=== PATIENT | female | born 1980 | race Caucasian/White ===

== ENCOUNTER 2021-08-26 03:21 | Emergency (ER) | payer OTHER, SELFPAY ==
[2021-08-26 03:28] VITALS: BP 135/88; PULSE 113; RESP 16; TEMP 36.5; O2SAT 98; BMI 34.3
[2021-08-26] MEDS: sodium chloride 0.9% 1,000 ML 999 ML IV ×2 (03:41→03:46)
[2021-08-26] MEDS: ondansetron 2 mg/ML SDV 2 mL 8 MG IVP (03:45)
--- NOTE | 2021-08-26 03:51 | W.ED.NAVMDI ---
HPI - Nausea/Vomiting/Diarrhea General: Chief complaint: Nausea/Vomiting/Diarrhea Stated complaint: Diarrhea\Fever\Vomiting Time Seen by Provider: 08/26/21 03:31 Source: patient History of Present Illness: Healthy 40-year-old female. She presents with vomiting diarrhea and fever for the past 4 days. She notes that she ate at a restaurant on , and noticed symptoms thereafter. They have not let up. No blood in the stool. No blood in the vomitus. Intermittent cramping belly pain without any constant pain. No difficulty with urination. MD elicited complaint: nausea, vomiting and diarrhea Onset (ago): day(s) (4) Description of vomiting: food contents and watery Description of diarrhea: watery Associated nausea: Yes Associated abdominal pain: Yes (Mild diffuse intermittent) Location of pain: Diffuse Radiation: diffuse Pain consistency: intermittent Severity: mild Quality: cramping Exacerbating factors: none Relieving factors: none Context: possible food poisoning Associated symtoms: Reports decreased urine output, fatigue, fevers/chills and nausea; Denies altered mental status, chest pain, cough, diaphoresis, dysuria, headache(s) or short of breath Treatment prior to arrival: analgesics Review of Systems Const: Reports: fever(s) and fatigue; Denies: diaphoresis ENMT: Denies: throat pain Card: Denies: chest pain Resp: Denies: dyspnea, productive cough or non-productive cough GI: Reports: nausea, vomiting and diarrhea; Denies: hematemesis or hematochezia : Denies: dysuria Neuro: Denies: headache(s) Physical Exam Const: EXAM LIMITATIONS: no altered mental status GENERAL APPEARANCE: cooperative; not frail appearing HENMT: COMMON NORMALS: normocephalic, atraumatic and Normal external nose present HEAD & SCALP: normocephalic and atraumatic FACE & SINUS: normal facial exam NOSE: Normal external nose present Eye: COMMON NORMALS: Equal, round and reactive pupils present and EOMs intact bilaterally PUPIL: Yes Equal, round and reactive pupils present Neck/C-Spine: GENERAL: Yes normal visual inspection and Yes trachea midline Chest: CHEST: Yes Symmetrical chest wall rise Resp: COMMON NORMALS: normal respiratory effort, No use of accessory muscles and clear to auscultation bilaterally AUSCULTATION: clear to auscultation bilaterally Cardio: COMMON NORMALS: regular rate and regular rhythm RATE: regular rate RHYTHM: regular rhythm GI: COMMON NORMALS: Normal to inspection, nondistended, normoactive bowel sounds present, Soft to palpation and non-tender PALPATION: Yes Soft to palpation Neuro: ELIA COMA SCALE: document GCS findings [place] coma scale eye opening: Spontaneous [place] coma scale verbal response: Orientated Elia coma scale motor response: Obey commands [place] coma scale total score: 15 Course Vital Signs: Vital signs: Vital Signs Temperature 97.7 F 08/26/21 03:28 Pulse Rate 113 H 08/26/21 03:28 Respiratory Rate 16 08/26/21 03:28 Blood Pressure 135/88 08/26/21 03:28 Pulse Oximetry 98 08/26/21 03:28 MDM - Nausea/Vomiting/Diarrhea Medical Decision Making White blood cell count is only 7.8, but CRP is 185. Hemoglobin 13.8. Bicarbonate is 21. She has received 2 L of IV fluid here. CT shows diffuse colitis. No perforation or bowel obstruction. There is some thickening of the mucosa in the distal stomach as well. She does not have a history of ulcerative colitis symptoms necessarily. She will be given ciprofloxacin, Flagyl, a tapering dose of steroid, and symptom control medication. Warning signs for return given. She has had no recent antibiotic usage. Lab Data : 08/26/21 03:35 08/26/21 03:35 Radiology Impressions Abdomen/Pelvis CT 08/26/21 04:11 IMPRESSION: 1. Findings compatible with diffuse colitis, see above details. 2. No free air or bowel distention. No evidence for bowel obstruction. 3. Borderline size of the appendix, please see detailed discussion above. 4. Possible thickened mucosa/wall in the distal stomach, see above discussion. 5. Prior cholecystectomy. Borderline/mild biliary tree dilation, see above discussion. 6. Small amount of cul-de-sac fluid. No definite abnormal ovarian/adnexal cyst or mass by CT. 7. Other findings discussed above. Laboratory Results WBC 7.8 10^3/uL (4.0-10.0) 08/26/21 03:35 RBC 4.67 10^6/uL (4.1-5.3) 08/26/21 03:35 Hgb 13.8 g/dL (11.5-15.3) 08/26/21 03:35 Hct 41.1 % (37.0-47.0) 08/26/21 03:35 MCV 88.0 fl (81-99) 08/26/21 03:35 MCH 29.6 pg (28.0-34.0) 08/26/21 03:35 MCHC 33.6 g/dL (30.0-36.0) 08/26/21 03:35 RDW 13.0 % (12.1-15.1) 08/26/21 03:35 Plt Count 358 10^3/cmm (130-400) 08/26/21 03:35 MPV 10.1 fL (7.4-10.4) 08/26/21 03:35 Neut % (Auto) 55.8 % 08/26/21 03:35 Lymph % (Auto) 30.1 % 08/26/21 03:35 [place] % (Auto) 12.9 % 08/26/21 03:35 Eos % (Auto) 0.4 % 08/26/21 03:35 Baso % (Auto) 0.4 % 08/26/21 03:35 Neut # (Auto) 4.38 10^3/uL (1.8-7.7) 08/26/21 03:35 Lymph # (Auto) 2.4 10^3/uL (0.8-4.8) 08/26/21 03:35 [place] # (Auto) 1.0 10^3/uL (0.2-0.9) H 08/26/21 03:35 Eos # (Auto) 0.0 10^3/uL (0.0-0.8) 08/26/21 03:35 Baso # (Auto) 0.0 10^3/uL (0.0-0.1) 08/26/21 03:35 Nucleated RBC % (auto) 0 % 08/26/21 03:35 Nucleated RBCs # 0.0 /100WBC 08/26/21 03:35 Sodium 134 mmol/L (136-145) L 08/26/21 03:35 Potassium 3.9 mmol/L (3.5-5.1) 08/26/21 03:35 Chloride 99 mmol/L (98-107) 08/26/21 03:35 Carbon Dioxide 21 mmol/L (22-29) L 08/26/21 03:35 Anion Gap 17.9 (5-19) 08/26/21 03:35 BUN 9 mg/dL (6-20) 08/26/21 03:35 Creatinine 0.6 mg/dL (0.5-0.9) 08/26/21 03:35 GFR Calculation 111.9 mL/min (90-130) 08/26/21 03:35 Glucose 145 mg/dL (65-115) H 08/26/21 03:35 Calculated Osmolality 279 mOsm/kg (285-295) L 08/26/21 03:35 Calcium 8.4 mg/dL (8.5-10.5) L 08/26/21 03:35 Total Bilirubin 0.3 mg/dL (0.15-1.2) 08/26/21 03:35 AST 35 U/L (0-32) H 08/26/21 03:35 ALT 35 U/L (0-33) H 08/26/21 03:35 Alkaline Phosphatase 71 IU/L (35-105) 08/26/21 03:35 C-Reactive Protein 185.3 mg/L (0.0-4.9) H 08/26/21 03:35 Total Protein 7.8 g/dL (6.6-8.7) 08/26/21 03:35 Albumin 3.9 g/dL (3.5-5.2) 08/26/21 03:35 Globulin 3.9 g/dL (1.3-4.6) 08/26/21 03:35 Lipase 21 U/L (13-60) 08/26/21 03:35 HCG, Qual Negative (Negative) 08/26/21 03:35 Urine Color Yellow (Yellow) 08/26/21 05:35 Urine Appearance Clear (CLEAR) 08/26/21 05:35 Urine pH 6.5 (5-7) 08/26/21 05:35 Ur Specific [place] 1.005 (1.005-1.030) 08/26/21 05:35 Urine Protein Trace (Negative) 08/26/21 05:35 Urine Glucose (UA) Norm (Normal) 08/26/21 05:35 Urine Ketones 1+ (Negative) H 08/26/21 05:35 Urine Blood Neg (Negative) 08/26/21 05:35 Urine Nitrate Negative (Negative) 08/26/21 05:35 Urine Bilirubin Neg (Negative) 08/26/21 05:35 Urine Urobilinogen Norm mg/dL (Negative) 08/26/21 05:35 Ur Leukocyte Esterase Negative (Negative) 08/26/21 05:35 Urine RBC 0-4 /hpf (0-2) H 08/26/21 05:35 Urine WBC 0-4 /hpf (0-5) H 08/26/21 05:35 Ur Squamous Epith Cells 5-10 /hpf (0-5) H 08/26/21 05:35 Amorphous Sediment Not Reportable 08/26/21 05:35 Urine Bacteria Trace /hpf (NONE) 08/26/21 05:35 Urine Mucus Trace /hpf 08/26/21 05:35 Coronavirus 229E (PCR) Not detected (NOT DETECT) 08/26/21 04:16 SARS-CoV-2 (PCR) Not detected (NOT DETECT) 08/26/21 04:16 Discharge Plan Discharge Patient Disposition: Home Clinical Impression: Colitis Condition: Stable Prescriptions: New metronidazole 500 mg tablet 500 mg PO Q8H 10 Days Qty: 30 0RF Cipro 500 mg tablet 500 mg PO BID Qty: 14 0RF Medrol (Fredy) 4 mg tablets,dose pack See Rx Instructions PO .COMPLEX Qty: 21 0RF Rx Instructions: orally per package directions Zofran 4 mg tablet 4 mg PO Q6H PRN (Reason: nausea and vomiting) Qty: 10 0RF hydrocodone-acetaminophen 5-325 mg tablet 1 tab PO Q8H PRN (Reason: pain) Qty: 7 0RF Discharge Orders: Discharge ED (Routine); Ordered 08/26/21 Ordered By: Sergei Marie Referrals: Sonal Roamno APN [Primary Care Provider] - 1-3 days Discharge Diet: Advance as tolerated and Clear Liquid Discharge Activity: Increase activity as tolerated Patient Instructions: Colitis (ED), Opioid Safety Activity Restrictions/Additional Instructions: Take nausea medication scheduled for the next 48 hours, then as needed. Antibiotic and steroid as directed. Use pain medication sparingly. Return for fever greater than 100 despite 2-3 doses of antibiotics, vomiting liquids or medications, worsening pain despite treatment, blood in the stool, any other concerning symptoms. Coding Level of Care Code ED Oncology Specialist for Chg Fwd Exam Comprehensive
[2021-08-26 03:54] LABS: Basophils % 0.4 %; Eosinophils % 0.4 %; Hematocrit 41.1 % (37.0-47.0); Hemoglobin 13.8 g/dL (11.5-15.3); Lymphocytes # 2.4 10^3/uL (0.8-4.8); Lymphocytes % 30.1 %; Mean Corpuscular HGB Conc 33.6 g/dL (30.0-36.0); Mean Corpuscular Hemoglobin 29.6 pg (28.0-34.0); Mean Platelet Volume 10.1 fL (7.4-10.4); Monocytes % 12.9 %; Neutrophils # 4.38 10^3/uL (1.8-7.7); Neutrophils % 55.8 %; Nucleated Red Blood Cells % 0 %; Platelet Count 358 10^3/cmm (130-400); Red Blood Count 4.67 10^6/uL (4.1-5.3); White Blood Count 7.8 10^3/uL (4.0-10.0)
[2021-08-26 04:02] LABS: HCG, Serum Qual Negative (Negative)
[2021-08-26 04:04] LABS: Alanine Aminotransferase 35 U/L (0-33); Albumin Level 3.9 g/dL (3.5-5.2); Alkaline Phosphatase 71 IU/L (35-105); Blood Urea Nitrogen 9 mg/dL (6-20); C Reactive Protein 185.3 mg/L (0.0-4.9); Calcium 8.4 mg/dL (8.5-10.5); Carbon Dioxide 21 mmol/L (22-29); Chloride 99 mmol/L (98-107); Creatinine Clr Calc Pharmacy 138.6943; Globulin 3.9 g/dL (1.3-4.6); Glomerular Filtration Rate 111.9 mL/min (90-130); Glucose 145 mg/dL (65-115); Lipase 21 U/L (13-60); Osmolality Calculated 279 mOsm/kg (285-295); Sodium 134 mmol/L (136-145); Total Bilirubin 0.3 mg/dL (0.15-1.2); Total Protein 7.8 g/dL (6.6-8.7)
[2021-08-26 04:05] LABS: Anion Gap 17.9 (5-19); Aspartate Amino Transferase 35 U/L (0-32); Potassium 3.9 mmol/L (3.5-5.1)
--- NOTE | 2021-08-26 04:11 | CTR_ITS ---
PROCEDURE INFORMATION: Exam: CT Abdomen And Pelvis With Contrast Exam date and time: 08/26/2021 4:11 AM Age: 40 years old Clinical indication: Fever and nausea and vomiting and other: Diarrhea; Prior surgery; Surgery date: 6+ months; Surgery type: Gb; Additional info: Abd pain vomiting diarrhea TECHNIQUE: Imaging protocol: Computed tomography of the abdomen and pelvis with contrast. Radiation optimization: All CT scans at this facility use at least one of these dose optimization techniques: automated exposure control; mA and/or kV adjustment per patient size (includes targeted exams where dose is matched to clinical indication); or iterative reconstruction. Contrast material: OMNI 300; Contrast volume: 95 ml; Contrast route: INTRAVENOUS (IV); COMPARISON: No relevant prior studies available. RADIATION DOSE METRICS: Total DLP (mGy-cm): 1772.43 FINDINGS: Lungs: The lung bases are clear. Liver: Unremarkable. Gallbladder and bile ducts: Prior cholecystectomy. Borderline/mild biliary tree dilation, with common duct measuring up to about 11 mm. No intrahepatic biliary dilation. No visible common duct stone by CT. Significance uncertain, but probably unlikely. Correlation with laboratory/bilirubin levels may be helpful to determine if there is any significant biliary obstruction. Pancreas: Unremarkable. Spleen: Unremarkable. Adrenal glands: Unremarkable. Kidneys and ureters: Small left upper pole intrarenal calculus. No hydronephrosis of either kidney. No visible ureteral calculus. Stomach and bowel: No significant bowel distention. Mild to moderate diffuse mucosal/wall thickening involving essentially the entire colon, probably slightly more prominent involving the right colon. Some regions demonstrate mild pericolonic edema/inflammation. Suspect mild associated involvement of the terminal ileum. While nonspecific, this appearance is likely secondary to some form of colitis, including infectious, inflammatory, and pseudomembranous colitis. Please correlate clinically. There are no CT findings to strongly suggest diverticulitis. Possibility of slightly thickened mucosa/wall in the distal antrum of the stomach. This is a nonspecific appearance, and could be transient on CT, but could also represent evidence for gastritis or peptic ulcer disease. Please correlate clinically. Appendix: The appendix is upper normal/mildly prominent in size with diameter of up to 6-7 mm. No significant surrounding inflammatory changes to strongly suggest appendicitis at this time. If appendicitis is in the differential diagnosis, follow-up scanning may be useful, as clinically directed. Appropriate clinical follow up warranted. Intraperitoneal space: No free intraperitoneal air, or generalized ascites. Small amount peritoneal fluid in the posterior lower pelvis/cul-de-sac fluid. Vasculature: No evidence for abdominal aortic aneurysm. Lymph nodes: No retroperitoneal adenopathy. Urinary bladder: The urinary bladder is almost empty, limiting evaluation. Reproductive: Small amount of cul-de-sac fluid. No definite abnormal ovarian/adnexal cyst or mass by CT. Bones/joints: No significant acute finding. Soft tissues: Very small umbilical hernia, containing only fat. CT/CT abdomen pelvis w con* [id number] IMPRESSION: 1. Findings compatible with diffuse colitis, see above details. 2. No free air or bowel distention. No evidence for bowel obstruction. 3. Borderline size of the appendix, please see detailed discussion above. 4. Possible thickened mucosa/wall in the distal stomach, see above discussion. 5. Prior cholecystectomy. Borderline/mild biliary tree dilation, see above discussion. 6. Small amount of cul-de-sac fluid. No definite abnormal ovarian/adnexal cyst or mass by CT. 7. Other findings discussed above.
[2021-08-26] MEDS: iohexol 300 mg/mL 100 mL Btl IV (04:30)
[2021-08-26 05:49] LABS: Urine Appearance Clear (CLEAR); Urine Color Yellow (Yellow); pH Urine 6.5 (5-7)
[2021-08-26 05:50] LABS: Add Urine Microscopic? YES; Bilirubin Urine Neg (Negative); Blood Urine Neg (Negative); Glucose Urine UA Norm (Normal); Ketones Urine 1+ (Negative); Leukocyte Esterase Urine Negative (Negative); Nitrate Urine Negative (Negative); Protein Urine Trace (Negative); RBC Urine 0-4 /hpf (0-2); Specific Gravity, Urine 1.005 (1.005-1.030); Urobilinogen Urine Norm (Negative); WBC Urine 0-4 /hpf (0-5)
[2021-08-26 05:51] LABS: Add Urine Culture? No; Bacteria Urine TRACE /hpf; Mucus Urine TRACE /hpf
[2021-08-26 06:00] LABS: Adenovirus Not Detected (NOT DETECT); Chlamydia Pneumoniae Not Detected (NOT DETECT); Coronavirus 229E,HKU1,NL63,OC4 Not Detected (NOT DETECT); Human Metapneumovirus Not Detected (NOT DETECT); Human Rhinovirus/Enterovirus Not Detected (NOT DETECT); Influenza A Not Detected (NOT DETECT); Influenza A H1 Not Detected (NOT DETECT); Influenza A H1-2009 Not Detected (NOT DETECT); Influenza A H3 Not Detected (NOT DETECT); Influenza B Not Detected (NOT DETECT); Mycoplasma Pneumoniae Not Detected (NOT DETECT); Parainfluenza Virus Type 1 Not Detected (NOT DETECT); Parainfluenza Virus Type 2 Not Detected (NOT DETECT); Parainfluenza Virus Type 3 Not Detected (NOT DETECT); Parainfluenza Virus Type 4 Not Detected (NOT DETECT); Respiratory Syncytial Virus A Not Detected (NOT DETECT); Respiratory Syncytial Virus B Not Detected (NOT DETECT); SARS-COV-2 Not Detected (NOT DETECT)
[2021-08-26] MEDS: metroNIDAZOLE 500 MG Tablet PO (06:01)
[2021-08-26] MEDS: dexamethasone 4 mg/mL INJ 8 MG IVP (06:02)
[2021-08-26] MEDS: ketorolac 30 mg/mL INJ 15 MG IVP (06:02)
[2021-08-26] MEDS: ciprofloxacin 500 mg Tablet PO (06:05)
== END 2021-08-26 06:19 | disposition home or self-care (01) ==
PROVIDERS: Emergency Provider Emergency Medicine; PCP Nurse Practitioner Family
DX: K52.9 Noninfective gastroenteritis and colitis, unspecified (principal)
CPT/HCPCS: 74177; 80053; 81001; 83690; 84703; 85025; 86140; 87635; 96361; 96374; 96375; 99284; J1100; J1885; J2405; J7030; Q9967

== ENCOUNTER → 2022-02-18 15:25 | Outpatient (BNVA) | payer OTHER, SELFPAY | PROVIDERS: PCP Nurse Practitioner Family; Visit Provider Nurse Practitioner | DX: F41.8 Other specified anxiety disorders (principal); E66.9 Obesity, unspecified; Z12.4 Encounter for screening for malignant neoplasm of cervix | CPT/HCPCS: 88175 ==

== ENCOUNTER → 2022-03-04 10:32 | Outpatient (BNVA) | payer SELFPAY | PROVIDERS: PCP Nurse Practitioner Family; Visit Provider Dermatology | DX: Z01.89 Encounter for other specified special examinations (principal) ==

== ENCOUNTER 2022-04-09 14:47 | Outpatient (CLI) | payer OTHER, SELFPAY ==
--- NOTE | 2022-04-09 15:00 | US_ITS ---
WS: [id number] THYROID ULTRASOUND HISTORY: E04.9 - Nontoxic goiter, unspecified COMPARISON: None available. Right lobe: 1.5 cm x 1.4 cm x 3.8 cm (w x ap x l). Volume: 4.2 cm3. Normal size and echotexture. No significant are dominant nodules are present. Left lobe: 1.5 cm x 1.4 cm x 3.3 cm (w x ap x l). Volume: 3.5 cm3. Normal size and echotexture. No significant or dominant nodules are present. Isthmus: 0.3 cm. US/US thyroid [id number] IMPRESSION: Normal thyroid ultrasound.
== END 2022-04-09 14:48 | disposition home or self-care (01) ==
LOC: RAD 14:48
PROVIDERS: PCP Nurse Practitioner Family; Visit Provider Nurse Practitioner
DX: E04.9 Nontoxic goiter, unspecified (principal)
CPT/HCPCS: 76536

== ENCOUNTER 2024-09-19 07:49 | Outpatient (CLI) | payer OTHER, SELFPAY ==
--- NOTE | 2024-09-19 07:54 | MM_ITS ---
WS: [id number] BILATERAL SCREENING DIGITAL TOMOSYNTHESIS MAMMOGRAM WITH CAD HISTORY: SCREENING COMPARISON: None available. Bilateral CC and MLO views with tomosynthesis and synthetic mammography submitted. Computer aided detection analyzed. Breast composition: The breasts are heterogeneously dense, which may obscure small masses. No suspicious masses, microcalcifications or architectural distortion. MM/MM scr BI tomosynthesis [id number] IMPRESSION: BI-RADS: 1 - Negative FOLLOW UP: 1 Year Follow-up
== END 2024-09-19 07:50 | disposition home or self-care (01) ==
LOC: RAD 07:52
PROVIDERS: PCP Nurse Practitioner; Visit Provider Family Medicine
DX: Z12.31 Encounter for screening mammogram for malignant neoplasm of breast (principal); R92.333 Mammographic heterogeneous density, bilateral breasts
CPT/HCPCS: 77063; 77067